=== PATIENT | female | born 2000 | race Caucasian/White ===

== ENCOUNTER 2023-05-03 18:22 | Emergency (ER) | payer OTHER, SELFPAY ==
--- NOTE | 2023-05-03 18:40 | ED_ITS ---
HPI - General Adult General Chief complaint: Skin/Abscess/Foreign Body Stated complaint: ? allergic reaction Time Seen by Provider: 05/03/23 19:05 Source: patient Mode of arrival: ambulatory Limitations: no limitations History of Present Illness HPI narrative: Patient apparently was taking Bactrim for tried to infection for first-time last 10 days today the morning she noticed rash all over the body started from the face in the left ear no vesicles,noticed to have low-grade fever 100.5 on arrival patient also complaining of mild sore throat no oral lesions patient is complaining of low back ache feels anxious no shortness of breath no wheeze Related Data Previous Rx's Medication Instructions Recorded diphenhydramine HCl 25 mg capsule 25 mg PO TID PRN allergic reaction 05/03/23 (Benadryl) #20 caps famotidine 20 mg tablet (Pepcid) 20 mg PO BID #10 tabs 05/03/23 prednisone 20 mg tablet 40 mg (2 x 20 mg) PO DAILY #10 tabs 05/03/23 Allergies Allergy/AdvReac Type Severity Reaction Status Date / Time No Known Allergies Allergy Verified 05/03/23 18:46 Review of Systems Review of Systems: Yes all other systems are reviewed and are negative PMFSH Past Medical History Onset Date is defined in the Problem List Problems that require an onset date and time if occurred within 24 hrs of arrival to the ED Aortic Dissection and Rupture; Neurologic impairment; Cardiopulmonary Arrest; Endotracheal Intubation; Insertion or Replacement of Mechanical Circulatory Assist Device Medical History (Updated 05/03/23 @ 20:48 by Rom Fletcher MD) Anxiety Social History Social History Alcohol intake: current Alcohol intake frequency: a few times a month Smoked in Last 30 Days: No Use of substances other than those prescribed or required for medical reasons: No Advance Directives: No Advance Directives Information Provided: No Patient : No Physical Exam ED Vital Signs: Vital Signs - 24 hr 05/03/23 18:47 05/03/23 18:59 05/03/23 20:38 Temperature 100.5 F H 99.6 F 98.5 F Pulse Rate 132 H 113 H 116 H Respiratory Rate 18 18 18 Blood Pressure 148/98 H 129/84 116/67 Pulse Oximetry 98 99 98 Oxygen Delivery Method Room Air Room Air Room Air BMI result Body Mass Index 22.1 Appearance: Alert. Oriented X3. Anxious ENT: Pharynx normal. Oral Mucosa moist no oral rash Neck: Normal inspection. Neck supple. CVS: Normal heart rate and rhythm. Pulses normal. Respiratory: No respiratory distress. Equal air entry bilateral, Abdomen: Soft and nontender. Skin: Skin warm and dry. Macular rash on the face left ear upper extremities and ankle no vesicles Extremities: No lower extremity edema. No calf tenderness Neuro: Oriented X 3. Course Course Course Narrative: This is an RME: Additional HPI, ROS, PE not included below will be deferred to primary provider. This is a 51-aeva-v[age]-female presenting to the emergency department with complaints of rash. 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 Patient had a tattoo on her right hip placed on April 21. She states that she noticed a rash starting near the tattoo. She was then started on Bactrim on April 24. She states that yesterday she noticed a rash diffusely throughout her face. She also endorses achiness, body aches, and fatigue starting yesterday. Plan: Patient immediately brought back to the emergency room for further evaluation. Medications Administered Discontinued Medications Generic Name Dose Route Start Last Admin Trade Name Mattq PRN Reason Stop Dose Admin Acetaminophen 650 mg 05/03/23 19:42 05/03/23 19:51 Acetaminophen 325 Mg Tablet PO 05/03/23 19:43 650 mg ONCE ONE Administration Dexamethasone 10 mg 05/03/23 19:34 05/03/23 19:44 Dexamethasone 2 Mg Tablet PO 05/03/23 19:35 10 mg ONCE ONE Administration Diphenhydramine HCl 50 mg 05/03/23 19:35 05/03/23 19:44 Diphenhydramine Hcl 25 Mg Capsule PO 05/03/23 19:36 50 mg ONCE ONE Administration Famotidine 20 mg 05/03/23 19:34 05/03/23 19:44 Famotidine 20 Mg Tablet PO 05/03/23 19:35 20 mg ONCE ONE Administration Medical Decision Making Medical Decision Making MDM Narrative: Patient allergic reaction to sulfa/Bactrim no signs of Calos Adriel syndrome/severe reaction. Patient was given PO Decadron and Pepcid and Benadryl patient takes Mirela daily feeling better will discharge patient home advised to continue prednisone and Benadryl and Pepcid as needed Lab Data MDM Lab Attestation statement: I reviewed the patient's lab results. Labs: Lab Results 05/03/23 05/03/23 Range/Units 19:58 20:00 Urine Color Yellow Urine Appearance Clear Urine pH 6.0 (5.0-9.0) Ur Specific [place] 1.020 (1.005-1.025) Urine Protein Negative (Neg-Trace) mg/dL Urine Glucose (UA) Negative (Negative) mg/dL Urine Ketones Negative (Negative) mg/dL Urine Blood Small (1+) H (Negative) Urine Nitrite Negative (Negative) Ur Leukocyte Esterase Negative (Negative) Urine RBC 0-2 (0-2) /HPF Urine WBC 0-5 (0-5) /HPF Ur Squamous Epith Cells 3-5 (0-2) /HPF Urine Bacteria None Seen (None Seen) Hyaline Casts 0-2 (0-2) /LPF COVID-19 (MIGDALIA) Negative (Negative) COVID-19 Clin Com See Note Influenza Type A (RASHAWN) Negative (Negative) Influenza Type B (RASHAWN) Negative (Negative) Influenza A & B Note See Note S. pyogenes GrpA RASHAWN Negative (Negative) Discharge Plan Discharge Clinical Impression: Allergy to sulfa drugs Patient Disposition: Home, Self-Care Instructions: General Allergic Reaction (ED) Additional Instructions: Likely have allergic reaction to Bactrim/sulfa drugs You should not take Bactrim in future Could you take Mirela you may take Benadryl 1 tablet every 6 hours for itching May start on prednisone and Pepcid if the rash still present tomorrow Report to the ER if as any blisters/oral rash Prescriptions: New prednisone 20 mg tablet 40 mg PO DAILY Qty: 10 0RF famotidine [Pepcid] 20 mg tablet 20 mg PO BID Qty: 10 0RF diphenhydramine HCl [Benadryl] 25 mg capsule 25 mg PO TID PRN (Reason: allergic reaction) Qty: 20 0RF Interventions: ED Discharge Assessment Last Done: 05/03/23 21:06 Discharge Date/Time: 05/03/23 21:06
[2023-05-03 18:47] VITALS: BP 148/98; PULSE 132; RESP 18; TEMP 38.1; O2SAT 98; BMI 22.1
[2023-05-03 18:59] VITALS: BP 129/84; PULSE 113; RESP 18; TEMP 37.6; O2SAT 99
[2023-05-03] MEDS: Famotidine 20 MG TABLET PO (19:44)
[2023-05-03] MEDS: diphenhydrAMINE HCL 25 MG CAPSULE 50 MG PO (19:44)
[2023-05-03] MEDS: dexAMETHasone 2 MG TABLET 10 MG PO (19:44)
[2023-05-03] MEDS: Acetaminophen 325 MG TABLET 650 MG PO (19:51)
[2023-05-03 20:11] LABS: Appearance Urine Clear; Color Urine Yellow; Glucose Urine UA Negative (Negative); Leukocyte Esterase Urine Negative (Negative); Nitrite Urine Negative (Negative); UMIC TRIGGER UACC YES; Urine Blood Small (1+) (Negative); Urine Ketones Negative (Negative); Urine Protein Negative (Neg-Trace)
[2023-05-03 20:17] LABS: IDNOW Serial# 08D9AD1C; Strep A Nucleic Acid Negative (Negative)
[2023-05-03 20:23] LABS: IDNOW Serial# 9DB6401D; Influenza A Negative (Negative); Influenza B2 Negative (Negative)
[2023-05-03 20:24] LABS: COVID-19 Test Negative (Negative); IDNOW Serial# 152EDE1D
[2023-05-03 20:26] LABS: Bacteria Urine None Seen (None Seen); Hyaline Casts Urine 0-2 /LPF (0-2); RBC Urine 0-2 /HPF (0-2); WBC Urine 0-5 /HPF (0-5)
[2023-05-03 20:38] VITALS: BP 116/67; PULSE 116; RESP 18; TEMP 36.9; O2SAT 98
== END 2023-05-03 21:06 | disposition home or self-care (01) ==
PROVIDERS: Emergency Provider Internal Medicine; PCP Physician Assistant
DX: L50.0 Allergic urticaria (principal); J02.9 Acute pharyngitis, unspecified; R50.9 Fever, unspecified; Z79.899 Other long term (current) drug therapy; Z11.52 Encounter for screening for COVID-19
CPT/HCPCS: 81001; 87502; 87635; 87651; 99283; 99284; J8540